=== PATIENT | female | born 1960 | race Caucasian/White ===

== ENCOUNTER 2020-11-23 10:32 | Emergency (ER) | payer OTHER, SELFPAY ==
--- NOTE | 2020-11-23 10:47 | ED.GENADULT ---
HPI - General Adult General Chief complaint: Skin/Abscess/Foreign Body Stated complaint: Shingles Time Seen by Provider: 11/23/20 10:47 Source: patient Mode of arrival: ambulatory Limitations: no limitations History of Present Illness HPI narrative: 60-year-old female patient presents to the [facility] with complaints of a rash to the right thigh that spreads around to the right side of the buttocks. The rash does not cross midline. Patient states she has had this there for about 4 days now and states it is very painful and burning. Rates her pain 7 out of 10. Patient states she has taken some Aleve for her pain here in there. Patient also concerned that she might have a urinary tract infection because she has had some low right-sided back pain with this as well. Denies fevers, body aches or chills. Related Data Home Medications Medication Instructions Recorded Confirmed diclofenac sodium 1 % topical gel 2 g TOPICAL QID 10/28/20 10/28/20 fluticasone propionate 50 1 spray INTRANASAL DAILY 10/28/20 10/28/20 mcg/actuation nasal spray,suspension lisinopril 5 mg tablet 5 mg PO BID 10/28/20 10/28/20 Allergies Allergy/AdvReac Type Severity Reaction Status Date / Time latex Allergy Unknown Unknown Verified 10/28/20 13:34 metronidazole Allergy Unknown Unknown Verified 10/28/20 13:34 Review of Systems Review of Systems: Narrative: CONSTITUTIONAL: Denies fever, chills, or sweats. EYES: Denies visual changes, redness, or discharge. ENT: Denies rhinorrhea, congestion, sore throat, or otalgia. CARDIOVASCULAR: Denies chest pain, palpitations, or edema. RESPIRATORY: Denies cough or dyspnea. GASTROINTESTINAL: Denies abdominal pain, nausea, vomiting, or diarrhea. GENITOURINARY: Denies dysuria or hematuria. SKIN: Positive painful rash with itching to the right thigh x4 days. MUSCULOSKELETAL: Denies back pain, joint pain, or myalgia. NEUROLOGIC: Denies headache, numbness, or weakness. PSYCHIATRIC: Denies anxiety or depression. [facility] Past Medical History Medical History Anxiety Celiac disease Chronic neck and back pain Essential (primary) hypertension Surgical History Surgical History History of cholecystectomy (~2018) Family History Family History Other Cerebrovascular accident Family history of malignant neoplasm Hypertension Social History Social History Smoking status: Former smoker Smoking end date: 09/11/92 Alcohol intake: current Substance use: current Substance use type: marijuana Additional living arrangements comments: Brother Gender identity (if verbalized by the patient): Female Comments At the time of my signature I agree with nursing past medical history, surgical, social, and family history. There is no relevant family history pertinent to the presenting complaint. Exam Narrative: Exam Narrative: GENERAL: Well-appearing, well-nourished, and in no acute distress. HEAD: Normocephalic, atraumatic. EYES: PERRLA and EOMI. ENT: Nares clear, no rhinorrhea or epistaxis. Mucous membranes moist. NECK: Supple. No lymphadenopathy CHEST: Clear to auscultation. No respiratory distress. HEART: Regular rate and rhythm. No murmur heard. Normal peripheral pulses. ABDOMEN: Soft, nontender, nondistended, normal active bowel sounds. EXTREMITIES: Normal range of motion. No edema. SKIN: Warm, dry, patient has blisterlike rash on erythemic base noted to various areas of the right thigh and does not appear to go into the vagina or cross midline. The rash does go along the dermatome on and follows into the right lower back does not cross midline. NEURO: No focal deficits. Alert and oriented x3. Course Reevaluation(s) Reevaluation #1: Reevaluated patient. Discussed with her that her u
[2020-11-23 10:56] VITALS: BP 116/66; PULSE 99; RESP 16; TEMP 36.5; O2SAT 98
--- NOTE | 2020-11-23 11:17 | PC.NURSE ---
during exam with psychiatric arnp stated also having urinary frequency and right lower back pain for last couple of weeks and requested ua.
== END 2020-11-23 11:35 | disposition home or self-care (01) ==
PROVIDERS: Emergency Provider Nurse Practitioner Family
DX: R21 Rash and other nonspecific skin eruption (principal); B02.9 Zoster without complications; Z87.891 Personal history of nicotine dependence; F41.9 Anxiety disorder, unspecified; I10 Essential (primary) hypertension; K90.0 Celiac disease
CPT/HCPCS: 81003; 87086; 87088; 99213; G0463

== ENCOUNTER 2021-04-29 11:05 | Outpatient (CLI) | payer OTHER, SELFPAY ==
--- NOTE | ~2021-04-29 | XR_ITS ---
XR_[id number] DATE: 04/29/2021 11:59 INDICATION: Neck pain. No injury. TECHNIQUE: AP, open-mouth, lateral views COMPARISON: None FINDINGS: There is very thick organized smooth continuous bone spurring extending from C3 to T1. Ther e is preservation of the disc spaces at C4-T1. The findings are consistent with prominent diffuse idi opathic skeletal hyperostosis of the cervical spine. There is congenital failure of segmentation at C2-3. There is prominent posterior spurring at C3-4 and to a lesser extent at C6-7 and C7-T1. No fracture or dislocation or locked facet or prevertebral soft tissue swelling is evident. 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 Reviewed, dictated and finalized at [facility].
== END 2021-04-29 11:06 | disposition home or self-care (01) ==
PROVIDERS: PCP Family Medicine; Visit Provider Nurse Practitioner Family
DX: M54.2 Cervicalgia (principal); M48.12 Ankylosing hyperostosis [Forestier], cervical region
CPT/HCPCS: 72040

== ENCOUNTER 2021-05-04 16:31 | Outpatient (CLI) | payer OTHER, SELFPAY ==
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
== END 2021-05-04 16:32 | disposition home or self-care (01) ==
LOC: ANHIMG 16:36
PROVIDERS: PCP Family Medicine; Visit Provider Nurse Practitioner Family
DX: S00.93XA Contusion of unspecified part of head, initial encounter (principal); X58.XXXA Exposure to other specified factors, initial encounter
CPT/HCPCS: 70450